=== PATIENT | female | born 1990 | race Hispanic/Latino ===

== ENCOUNTER 2017-07-16 21:27 | Emergency (ER) | payer SELFPAY ==
[2017-07-16 21:35] VITALS: BMI 23.8
[2017-07-16] MEDS ORDERED: Albuterol-Ipratrop 3 mg / 0.5 (3 ml) UD INH STA (22:05)
[2017-07-16] MEDS ORDERED: Promethazine/Cod 6.25mg-10mg/5ml Syr UD PO STA (22:05)
--- NOTE | 2017-07-16 22:53 | ED PDOC ---
HPI: Chest Pain Time Seen by Provider: 07/16/17 21:46 Chief Complaint (Nursing): Chest Pain Chief Complaint (Provider): Chest pain and cough x1 day History Per: Patient History/Exam Limitations: no limitations Onset/Duration Of Symptoms: Days (1) Current Symptoms Are (Timing): Still Present Severity: Moderate Quality: "Pain" Associated Symptoms: denies: Nausea, Dyspnea, Diaphoresis, Syncope Exacerbating Factors: Deep Breathing Additional History Per: Patient Additional Complaint(s): 26 y/o female with no PMHx complaining of a one day history of productive cough with brown sputum, chest pain with deep inhalation, and malaise. She denies fever, vomiting, or diarrhea. No other complaints at this time. Past Medical History Vital Signs: Last Vital Signs Temp 99.6 F 07/17/17 00:33 Pulse 88 07/17/17 00:33 Resp 16 07/17/17 00:33 BP 119/59 L 07/17/17 00:33 Pulse Ox 98 07/17/17 00:33 - Medical History PMH: No Chronic Diseases - Surgical History Surgical History: No Surg Hx - Family History Family History: States: Unknown Family Hx - Social History Current smoker - smoking cessation education provided: No Ex-Smoker (has not smoked in the last 12 months): No Alcohol: None Drugs: Denies - Home Medications Home Medications: Ambulatory Orders Medication Instructions Recorded Albuterol Sulfate [Proair Hfa] 0.09 mg IH Q6 PRN #1 inh 07/17/17 Benzonatate [Tessalon Perle] 100 mg PO TID PRN #15 capsule 07/17/17 Oseltamivir [Tamiflu] 75 mg PO BID #10 cap 07/17/17 - Allergies Allergies/Adverse Reactions: Allergies Allergy/AdvReac Type Severity Reaction Status Date / Time No Known Allergies Allergy Verified 07/16/17 21:40 Review of Systems ROS Statement: Except As Marked, All Systems Reviewed And Found Negative Constitutional: Positive for: Malaise Cardiovascular: Positive for: Chest Pain Respiratory: Positive for: Cough Physical Exam - Reviewed Nursing Documentation Reviewed: Yes Vital Signs Reviewed: Yes - Physical Exam Appears: Positive for: Well, Non-toxic, No Acute Distress Head Exam: Positive for: ATRAUMATIC, NORMAL INSPECTION, NORMOCEPHALIC Skin: Positive for: Normal Color, Warm, DRY Eye Exam: Positive for: EOMI, Normal appearance, PERRL ENT: Positive for: Normal ENT Inspection Neck: Positive for: Normal, Painless ROM Cardiovascular/Chest: Positive for: Regular Rate, Rhythm Respiratory: Positive for: Decreased Breath Sounds (bilateral bases ). Negative for: Normal Breath Sounds Gastrointestinal/Abdominal: Positive for: Normal Exam, Bowel Sounds, Soft Back: Positive for: Normal Inspection Extremity: Positive for: Normal ROM Neurologic/Psych: Positive for: Alert, Oriented - Laboratory Results Result Diagrams: 07/16/17 22:35 07/16/17 22:35 - ECG O2 Sat by Pulse Oximetry: 99 Medical Decision Making Medical Decision Making: Impression: Productive Cough Plan: - Labs - CXR - EKG - Duo Neb - Tamiflu Time: 00:22 Chest x-ray shows no acute disease and no clinically significant abnormalities with exception of flu is positive. Patient shows improvement in symptoms and is medically stable for discharge home with Rx for Tamiflu 75mh PO and Proair Hfa 0.09mg IH. Counseling was provided and all questions were answered regarding diagnosis. There is agreement to discharge plan. Return if symptoms persist or worsen. Clinical Impression: Influenza ~ Scribe Attestation: Documented by Marianne Engle and Barb Michelle, acting as a scribe for Vasu Larsen MD . Provider Scribe Attestation: All medical record entries made by the Scribe were at my direction and personally dictated by me. I have reviewed the chart and agree that the record accurately reflects my personal performance of the history, physical exam, medical decision making, and the department course for this patient. I have also personally directed, reviewed, and agree with the discharge instructions and disposition. Disposition - Clinical Impression Clinical Impression: Influenza - Disposition Disposition: Routine/Home Disposition Time: 00:22 Condition: STABLE Prescriptions: Albuterol Sulfate [Proair Hfa] 0.09 mg IH Q6 PRN #1 inh PRN Reason: Shortness Of Breath Benzonatate [Tessalon Perle] 100 mg PO TID PRN #15 capsule PRN Reason: Cough Oseltamivir [Tamiflu] 75 mg PO BID #10 cap Instructions: Flu Forms: [facility] (Azeri)
[2017-07-16 23:11] LABS: BASO % 0.4 % (0.0-2.0); LYMPH # 0.8 K/uL (1.0-4.3); LYMPH % 19.3 % (20.0-40.0); MEAN CELL VOLUME 92.2 fl (81.0-99.0); MEAN CORPUSCULAR HEMOGLOBIN 31.3 pg (27.0-31.0); MEAN CORPUSCULAR HGB CONC 33.9 g/dL (33.0-37.0); MEAN PLATELET VOLUME 8.2 fl (7.2-11.7); MONO # 0.4 K/uL (0.0-0.8); MONO % 9.8 % (0.0-10.0); NEUT # 3.1 K/uL (1.8-7.0); NEUT % 70.5 % (50.0-75.0); RBC 4.17 Mil/uL (3.80-5.20); RED CELL DISTRIBUTION WIDTH 13.3 % (11.5-14.5); WHITE BLOOD COUNT 4.4 K/uL (4.8-10.8)
[2017-07-16 23:16] LABS: BLOOD UREA NITROGEN 7 mg/dl (7-17); CALCIUM 9.1 mg/dL (8.4-10.2); GFR AFRICAN-AMERICAN > 60; GFR NON-AFRICAN AMERICAN > 60
[2017-07-17 00:34] VITALS: BP 119/59; PULSE 88; RESP 16; TEMP 99.6
--- NOTE | 2017-07-17 09:56 | RAD ---
HISTORY: cough COMPARISON: No prior. TECHNIQUE: Chest PA and lateral FINDINGS: LUNGS: No active pulmonary disease. PLEURA: No significant pleural effusion identified. No pneumothorax apparent. CARDIOVASCULAR: Normal. OSSEOUS STRUCTURES: No significant abnormalities. VISUALIZED UPPER ABDOMEN: Normal. OTHER FINDINGS: None. IMPRESSION: No active disease.
--- NOTE | 2017-07-17 14:56 | CARD ---
APPROVED REPORT EKG Measurement Heart [id number] <Conclusion> Normal sinus rhythm Nonspecific ST and T wave abnormality Abnormal ECG
[2017-07-17 21:01] VITALS: O2SAT 99
== END 2017-07-17 00:39 | disposition home or self-care (01) ==
LOC: H.ER 21:27
DX: J11.1 Influenza due to unidentified influenza virus with other respiratory manifestations (principal)
CPT/HCPCS: 71046; 80048; 81025; 84484; 85025; 87040; 87804; 93005; 94150; 94640; 99285; J1885